=== PATIENT | male | born 1950 | race Caucasian/White ===

== ENCOUNTER 2018-09-02 07:02 | Day surgery (SDC) | payer OTHER ==
[2018-09-02] MEDS ORDERED: MIDAZOLAM 1 MG/ML 2 ML INJ ×2 (10:28→10:29)
[2018-09-02] MEDS ORDERED: FENTAnyl 50 MCG/ML VIAL (10:28)
== END 2018-09-02 10:39 | disposition home or self-care (01) ==
LOC: GIL 07:02
DX: Z12.11 Encounter for screening for malignant neoplasm of colon (principal); D12.5 Benign neoplasm of sigmoid colon; K57.30 Diverticulosis of large intestine without perforation or abscess without bleeding; K64.0 First degree hemorrhoids; I10 Essential (primary) hypertension
CPT/HCPCS: 45380; 88305